=== PATIENT | female | born 1955 | race Caucasian/White ===

== ENCOUNTER 2020-09-15 22:29 | Emergency (ER) | payer OTHER ==
[~2020-09-15] VITALS: Ht 154.9 cm; Wt 99.8 kg
[~2020-09-15 22:29] MED LIST: ALLOPURINOL 10100 M1 PO; ATENOLOL 100MG100 MG PO; BENAZEPRIL HCL40 MG PO; CLONIDINE0.1 PO; FISH OIL 1,001000 M2 PO; FLONASE 0.05%50 MCG NASAL; LEVOTHYROXIN0.075 MG PO; LIPITOR 20 MG T20 M1 PO; METFORMIN HCL500 MG PO; NORVASC10 MG PO; ONGLYZA2.5 MG PO; OXYBUTYNIN 5 MG5 M2 PER TUBE; PREMPHASE 0.621 EAC1 PO; PRILOSEC 20 MG20 MG PO; VITAMINC500; VITAMINC500 PO
[2020-09-15 22:54] LABS: ABSOLUTE BASOPHILS 0.1 thou/uL (0.0-0.2); ABSOLUTE LYMPHOCYTES 1.1 thou/uL (0.8-5.3); ABSOLUTE MONOCYTES 0.9 thou/uL (0.0-1.2); ABSOLUTE NEUTROPHILS 9.2 thou/uL (1.6-8.1); BASOPHILS 0.6 %; EOSINOPHILS 0.1 %; HEMATOCRIT 34.6 % (37.0-47.0); HEMOGLOBIN 11.6 gm/dL (12.0-15.0); LYMPHOCYTES 9.7 %; MCH 29.7 pg (26.0-34.0); MCHC 33.4 g/dL (28.0-37.0); MCV 88.9 fL (80.0-100.0); MONOCYTES 7.9 %; NUCLEATED RBCS 0 /100WBC; PLATELET COUNT* 338 thou/uL (150-400); POLYS 81.7 %; RBC 3.89 mil/uL (4.20-5.00); RDW-CV 13.8 % (10.5-14.5); WBC 11.3 thou/uL (4.0-11.0)
[2020-09-15 22:58] LABS: CALCIUM 8.6 mg/dL (8.5-10.1); CREATININE 1.1 mg/dL (0.6-1.3)
[2020-09-15 23:02] LABS: ALBUMIN 2.8 g/dL (3.4-5.0); MAGNESIUM 1.3 mg/dL (1.8-2.4); TOTAL BILIRUBIN 0.3 mg/dL (<0.1-1.0); TOTAL PROTEIN 7.8 g/dL (6.4-8.2)
[2020-09-16 00:45] LABS: URINE BILIRUBIN NEGATIVE (Negative); URINE BLOOD 2+ (Negative); URINE CLARITY CLOUDY; URINE COLOR YELLOW; URINE GLUCOSE-RANDOM NEGATIVE (Negative); URINE KETONES TRACE (Negative); URINE LEUKOCYTES-REFLEX 1+ (Negative); URINE NITRITE-REFLEX NEGATIVE (Negative); URINE PROTEIN 2+ (Negative); URINE UROBILINOGEN 0.2 E.U./dl (0.2-1.0)
[2020-09-16 01:06] LABS: BACTERIA-REFLEX >30 Many /HPF (None Seen); SQUAMOUS 0-3 Few /LPF (0-3); URINE RBC 3-10 Few /HPF (0-2); URINE WBC-REFLEX >25 Many /HPF (0-5)
[2020-09-16 01:07] LABS: CASTS None Seen /LPF (None Seen); CRYSTALS None Seen /LPF (None Seen)
[2020-09-16] MEDS ORDERED: KEFLEX500 M1 PO (01:33)
[2020-09-16 01:41] VITALS: BP 141/72
[2020-09-16] MEDS ORDERED: DIFLUCAN150 MG PO (01:42)
--- NOTE | 2020-09-16 13:38 | EKG ---
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
== END 2020-09-16 01:41 | disposition home or self-care (01) ==
LOC: M.ERS 22:29
PROVIDERS: Personal Emergency Response Attendant
DX: N39.0 Urinary tract infection, site not specified (principal); Z20.828 Contact with and (suspected) exposure to other viral communicable diseases; E11.9 Type 2 diabetes mellitus without complications; Z98.890 Other specified postprocedural states; Z90.710 Acquired absence of both cervix and uterus

== ENCOUNTER 2020-10-08 22:18 | Emergency (ER) | payer OTHER ==
[~2020-10-08] VITALS: Ht 154.9 cm; Wt 105.7 kg
[~2020-10-08 22:18] MED LIST changes: +DIFLUCAN150 MG PO; +KEFLEX500 M1 PO
[2020-10-08 23:02] LABS: URINE BILIRUBIN NEGATIVE (Negative); URINE BLOOD TRACE (Negative); URINE CLARITY CLEAR; URINE COLOR YELLOW; URINE GLUCOSE-RANDOM NEGATIVE (Negative); URINE KETONES NEGATIVE (Negative); URINE LEUKOCYTES-REFLEX 1+ (Negative); URINE NITRITE-REFLEX NEGATIVE (Negative); URINE PROTEIN 1+ (Negative); URINE SPECIFIC GRAVITY 1.015 (1.005-1.030); URINE UROBILINOGEN 0.2 E.U./dl (0.2-1.0)
[2020-10-08 23:27] LABS: HEMATOCRIT 36.6 % (37.0-47.0); HEMOGLOBIN 11.9 gm/dL (12.0-15.0); MCH 29.4 pg (26.0-34.0); MCHC 32.6 g/dL (28.0-37.0); MCV 90.3 fL (80.0-100.0); NUCLEATED RBCS 0 /100WBC; PLATELET COUNT* 310 thou/uL (150-400); RBC 4.05 mil/uL (4.20-5.00); RDW-CV 14.3 % (10.5-14.5); WBC 9.4 thou/uL (4.0-11.0)
[2020-10-08 23:53] LABS: CASTS None Seen /LPF (None Seen); SQUAMOUS >10 Many /LPF (0-3)
[2020-10-08 23:54] LABS: URINE WBC-REFLEX >25 Many /HPF (0-5)
[2020-10-08 23:55] LABS: CRYSTALS None Seen /LPF (None Seen); URINE RBC 3-10 Few /HPF (0-2)
[2020-10-09 00:03] LABS: CALCIUM 8.8 mg/dL (8.5-10.1); CREATININE 1.1 mg/dL (0.6-1.3); POTASSIUM 3.9 mmol/L (3.5-5.1)
[2020-10-09 00:06] LABS: ALBUMIN 3.2 g/dL (3.4-5.0); MAGNESIUM 1.1 mg/dL (1.8-2.4); TOTAL BILIRUBIN 0.3 mg/dL (<0.1-1.0); TOTAL PROTEIN 8.1 g/dL (6.4-8.2)
[2020-10-09 00:22] LABS: ABSOLUTE EOSINOPHILS 0.2 thou/uL (0.0-0.7); ABSOLUTE LYMPHOCYTES 0.7 thou/uL (0.8-5.3); ABSOLUTE MONOCYTES 0.2 thou/uL (0.0-1.2); ABSOLUTE NEUTROPHILS 8.4 thou/uL (1.6-8.1); PLATELET ESTIMATE ADEQUATE
[2020-10-09] MEDS ORDERED: MACROBID 100 M100 M1 PO (01:07)
[2020-10-09 01:30] VITALS: BP 174/70
== END 2020-10-09 01:30 | disposition home or self-care (01) ==
LOC: M.ERS 22:18
PROVIDERS: Personal Emergency Response Attendant
DX: N39.0 Urinary tract infection, site not specified (principal); R53.1 Weakness; Z20.828 Contact with and (suspected) exposure to other viral communicable diseases; E11.9 Type 2 diabetes mellitus without complications; I10 Essential (primary) hypertension; Z98.890 Other specified postprocedural states; Z90.710 Acquired absence of both cervix and uterus